=== PATIENT | male | born 1965 | race Caucasian/White ===

== ENCOUNTER 2019-09-28 15:21 | Day surgery (SDC) | payer OTHER ==
[2019-09-28] MEDS ORDERED: Propofol 200 MG/20 ML SDV ONE (16:39)
[2019-09-28] MEDS ORDERED: fentaNYL 250 MCG/5 ML SDV ONE (16:40)
[2019-09-28] MEDS ORDERED: Midazolam 1 MG/ML 2 ML SDV ONE (16:40)
[2019-09-28] MEDS ORDERED: Lidocaine 1% 4 ML ONE (16:40)
[2019-09-28] MEDS ORDERED: Succinylcholine/Sod PF 100 MG/5 ML SYRINGE IV ONE (16:45)
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
[2019-09-28] MEDS ORDERED: Bupivacaine 0.5%/EPINEPHrine 1:200,000 50 ML MDV ONE (17:14)
[2019-09-28] MEDS ORDERED: ceFAZolin 1 GM Vial ONE (17:28)
[2019-09-28] MEDS ORDERED: Ondansetron 4 MG/2 ML SDV ONE (17:57)
[2019-09-28] MEDS ORDERED: HYDROmorphone 0.5 MG/0.5 ML Syringe ONE (18:22)
[2019-09-28] MEDS ORDERED: Morphine 2 MG/ML Syringe IVPUSH PRN (18:49)
[2019-09-28] MEDS: fentaNYL 100 MCG/2 ML SDV IVPUSH PRN ×2 (18:50→19:14)
--- NOTE | 2019-09-28 18:57 | PCM.PRNOTE ---
- Free Text/Narrative Note: Date: 09/28/2019 Operation: open umbilical hernia repair with mesh placement Indication: concern for strangulated umbilical hernia Surgeon: Giuliano Mauricio MD Assisting: Francisca BOB EBL: 10 cc Pre-op abx: 2 g ancef IV Specimen: hernia sac Findings: narrow neck to umbilical hernia sac, which was about the size of a golf ball and contained visceral fat which did not appear ischemic or necrotic. A 6.5 cm circular coated permanent mesh patch was placed, with fascia closed anterior to the mesh. Detailed Report: The patient was taken the operating room and placed in supine position. Timeout was performed, and general endotracheal anesthesia was initiated. The abdomen was prepped and draped in usual sterile fashion. A periumbilical midline incision measuring approximately 7 cm was made through the skin using the knife. Monopolar energy was used to dissect down to the hernia sac and surrounding fascia. The hernia sac from surrounding tissue relatively easily, and the hernia sac appeared thickened and contained visceral fat. No hernia contents appeared ischemic on opening of the sac. The fascial defect was very small, and it was difficult to permit passage of the small finger. The hernia sac was dissected free from the fascia after ensuring reduction of all hernia contents. This was done by opening the fascia, and palpating digitally. The hernia sac, once excised, was placed in formalin and sent for pathologic analysis. The anterior rectus fascia was exposed and overlying subcutaneous fatty tissue was cleared. A 6.5 cm circular mesh patch with biologic coating was then introduced to the field. This was placed intraperitoneally and brought up against the anterior abdominal wall with the straps. 0 Vicryl suture was used to secure the mesh in place to the surrounding fascia. The linea alba was then reconstructed by closing the fascia primarily anterior to the mesh. Several deep dermal interrupted Vicryl sutures were placed to bring the edges of the wound together, and a running 4-0 Vicryl subcuticular stitch was used to close the skin. A total of 30 cc of 0.5 % Marcaine with epinephrine was injected at all areas of the abdominal wall around the incision site to ensure good local anesthetic effect. The wound was dressed with Dermabond. Patient tolerated the procedure well. Giuliano Mauricio MD General Surgery
[2019-09-28] MEDS: HYDROmorphone 0.5 MG/0.5 ML Syringe IVPUSH PRN ×2 (19:03→19:42)
--- NOTE | 2019-09-28 19:04 | PCM.POSTAN ---
POST ANESTHESIA ASSESSMENT - MENTAL STATUS Mental Status: Disoriented - VITAL SIGNS Vital Signs: Last Vital Signs Temp 98.6 F 09/28/19 18:43 Pulse 93 09/28/19 18:43 Resp 20 09/28/19 18:43 BP 165/93 H 09/28/19 18:43 Pulse Ox 97 09/28/19 18:43 - RESPIRATORY Respiratory Status: Respiratory Rate WNL, Airway Patent, O2 Saturation Stable, Supplemental Oxygen - CARDIOVASCULAR CV Status: Pulse Rate WNL, Blood Pressure Stable (elevated within preoperative baseline) - GASTROINTESTINAL GI Status: No Symptoms - PAIN Pain Score: 8 (pain orders are in) - POST OP HYDRATION Hydration Status: Adequate & Stable
[2019-09-28] MEDS: Lactated Ringers 1,000 ML IV SCH (19:45)
--- NOTE | 2019-09-28 19:50 | PCM48HPAN ---
Post Anesthesia Note - EVALUATION WITHIN 48HRS OF ANESTHETIC Vital Signs in Normal Range: Yes (within baseline) Patient Participated in Evaluation: Yes Respiratory Function Stable: Yes Airway Patent: Yes Cardiovascular Function Stable: Yes Hydration Status Stable: Yes Pain Control Satisfactory: Yes (improvement noted, patient doesn't want more pain meds at this time) Nausea and Vomiting Control Satisfactory: Yes Mental Status Recovered: Yes Vital Signs: Last Vital Signs Temp 98.7 F 09/28/19 19:25 Pulse 89 09/28/19 19:25 Resp 12 09/28/19 19:25 BP 158/86 H 09/28/19 19:25 Pulse Ox 95 09/28/19 19:25 - COMMENTS/OBSERVATIONS Free Text/Narrative:: Patient is being transferred for an extended floor recovery
[2019-09-28] MEDS: Acetaminophen 325 MG Tab PO SCH (21:31)
[2019-09-29] MEDS: oxyCODONE 5 MG Tab PO PRN ×2 (01:36→09:14)
[2019-09-29] MEDS: Lactated Ringers 1,000 ML IV SCH (01:40)
[2019-09-29] MEDS: Acetaminophen 325 MG Tab PO SCH (03:49)
== END 2019-09-29 09:23 | disposition home or self-care (01) ==
LOC: JD.ED 15:21 → JD.SDS 17:01 → JD.MS 20:38 → JD.SDS 09-29 09:23
PROVIDERS: ATTEND Surgery
DX: K42.9 Umbilical hernia without obstruction or gangrene (principal); Z88.6 Allergy status to analgesic agent
CPT/HCPCS: 36415; 49585; 80048; 85025; 94762; A9270; C1781; J0330; J0690; J1170; J2001; J2250; J2405; J2704; J3010; J3490; J7120; 00750